=== PATIENT | female | born 1970 | race African-American/Black ===

== ENCOUNTER 2019-06-13 12:36 | Emergency (ER) | payer MEDICARE, MEDICAID ==
[~2019-06-13] VITALS: Ht 162.6 cm; Wt 63.0 kg
[2019-06-13] MEDS ORDERED: IBUPROFEN 600MG TABLET PO ONE (14:15)
[2019-06-13 14:31] VITALS: BP 133/80
== END 2019-06-13 15:33 | disposition home or self-care (01) ==
LOC: ER 12:36
DX: H66.93 Otitis media, unspecified, bilateral (principal); R50.9 Fever, unspecified; J02.9 Acute pharyngitis, unspecified; Z98.890 Other specified postprocedural states
CPT/HCPCS: 99283

== ENCOUNTER 2020-07-23 13:47 | Inpatient (IN) | payer MEDICARE, MEDICAID ==
[~2020-07-23] VITALS: Ht 162.6 cm; Wt 80.7 kg
[~2020-07-23 13:47] MED LIST: ASCO-339 MT; ASCO100T12 PO; AZAT50TA18 MT; CELL5 MT; HYDR200T80 MT; P20 MT
[2020-07-23 16:12] LABS: BASOPHILS % 0.2 % (0.0-2.0); EOSINOPHILS % 0.7 % (0.0-5.0); HEMATOCRIT. 26.1 % (36.0-48.0); HEMOGLOBIN. 8.3 g/dL (12.0-16.0); LYMPHOCYTES % 14.4 % (20.0-50.0); MEAN CORPUSCULAR VOLUME 81.9 fL (81.0-99.0); MEAN PLATELET VOLUME 13.3 fl (7.4-10.4); MONOCYTES % 4.6 % (2.0-8.0); NEUTROPHILS % 80.1 % (40.0-76.0); RED BLOOD CELL COUNT 3.19 mill/uL (4.2-5.4); RED CELL DISTRIBUTION WIDTH 17.8 % (11.6-14.6)
[2020-07-23 16:18] LABS: CHLORIDE 101 mEq/L (98-107)
[2020-07-23 16:22] LABS: PLATELET 14 x1000/uL (130-400)
[2020-07-23 21:30] VITALS: BP 124/82
[2020-07-23] MEDS ORDERED: MAGNESIUM/ALUMINUM HYDROXIDE/SIMETHICONE 30ML UDC PO PRN (23:30)
[2020-07-23] MEDS ORDERED: DOCUSATE SODIUM 100MG CAPSULE PO PRN (23:30)
[2020-07-23] MEDS ORDERED: ACETAMINOPHEN 325MG TABLET PO PRN ×2 (23:30)
[2020-07-23 23:32] VITALS: BP 128/76
[2020-07-24] VITALS (11 sets, daily range): BP systolic 98–129; BP diastolic 64–82
[2020-07-24] MEDS ORDERED: ALPRAZOLAM 0.5 MG TABLET PO PRN (00:30)
[2020-07-24] MEDS: METHYLPREDNISOLONE SOD SUCC 125 MG/2 ML VIAL IV SCH ×5 (00:44→23:07)
[2020-07-24] MEDS: HYDROMORPHONE HCL/PF 2MG/ML CPJ IV PRN ×5 (00:47→22:59)
[2020-07-24] MEDS: DIPHENHYDRAMINE 50MG/ML VIAL IV PRN ×3 (00:50→17:00)
[2020-07-24] MEDS: DEXT 5%/0.45% NACL 1000ML 1,000 ML IV SCH ×3 (01:05→20:27)
[2020-07-24 07:37] LABS: HEMATOCRIT. 24.1 % (36.0-48.0); HEMOGLOBIN. 7.9 g/dL (12.0-16.0); MEAN CORPUSCULAR HEMOGLOBIN 26.2 pg (28.0-32.0); MEAN CORPUSCULAR VOLUME 80.4 fL (81.0-99.0); MEAN PLATELET VOLUME 8.7 fl (7.4-10.4); RED BLOOD CELL COUNT 2.99 mill/uL (4.2-5.4); RED CELL DISTRIBUTION WIDTH 17.2 % (11.6-14.6)
[2020-07-24] MEDS: TRIAMCINOLONE ACETONIDE 0.1% CREAM 15GM TOP SCH ×2 (08:09→20:24)
[2020-07-24] MEDS: HYDROCORTISONE 2.5% CREAM 20GM TOP SCH ×2 (08:09→20:24)
[2020-07-24] MEDS: HYDROXYCHLOROQUINE SULFATE 200MG TABLET PO SCH ×2 (08:09→17:00)
[2020-07-24 08:17] LABS: PLATELET 39 x1000/uL (130-400)
[2020-07-24 08:23] LABS: CHLORIDE 101 mEq/L (98-107)
[2020-07-24 08:33] LABS: T4 FREE 1.08 ng/dL (0.76-1.46)
[2020-07-24 10:08] LABS: ATYPICAL LYMPHOCYTES 1
[2020-07-24 10:09] LABS: PLATELET ESTIMATE MARKEDLY DECREASED
[2020-07-24 10:40] LABS: CLARITY URINE CLEAR (CLEAR); COLOR URINE YELLOW (YELLOW); KETONES URINE NEGATIVE (NEGATIVE); LEUKOCYTE ESTERASE URINE TRACE (NEGATIVE); NITRITE URINE NEGATIVE (NEGATIVE); OCCULT BLOOD URINE NEGATIVE (NEGATIVE); PROTEIN URINE 2+ (NEGATIVE); SPECIFIC GRAVITY URINE 1.013 (1.005-1.030); UROBILINOGEN URINE 0.2 E.U./dL (0.2-1.0)
[2020-07-24 10:55] LABS: METHADONE URINE SCREEN NEGATIVE (NEGATIVE)
[2020-07-24 10:56] LABS: *AMPHETAMINES SCREEN URINE NEGATIVE (NEGATIVE); *BARBITURATES SCREEN URINE NEGATIVE (NEGATIVE); *BENZODIAZEPINES SCREEN URINE NEGATIVE (NEGATIVE); *COCAINE SCREEN URINE NEGATIVE (NEGATIVE); CANNABINOID URINE SCREEN NEGATIVE (NEGATIVE); PHENCYCLIDINE URINE SCREEN NEGATIVE (NEGATIVE)
[2020-07-24 10:59] LABS: OPIATES URINE SCREEN PRESUMTIVE POSITIVE (NEGATIVE)
[2020-07-24] MEDS: ONDANSETRON HCL 4MG/2ML INJ IV PRN ×2 (11:29→17:00)
[2020-07-24] MEDS: ZOLPIDEM TARTRATE 5MG TABLET PO PRN (20:23)
[2020-07-25] VITALS: BP 121/75
[2020-07-25] MEDS: HYDROMORPHONE HCL/PF 2MG/ML CPJ IV PRN ×6 (01:55→20:48)
[2020-07-25] MEDS: ONDANSETRON HCL 4MG/2ML INJ IV PRN ×3 (01:55→17:28)
[2020-07-25 04:00] VITALS: BP 106/71
[2020-07-25] MEDS: METHYLPREDNISOLONE SOD SUCC 125 MG/2 ML VIAL IV SCH ×4 (06:09→23:35)
[2020-07-25] MEDS: DEXT 5%/0.45% NACL 1000ML 1,000 ML IV SCH ×2 (06:12→17:28)
[2020-07-25 06:37] LABS: HEMATOCRIT. 24.4 % (36.0-48.0); MEAN CORPUSCULAR HEMOGLOBIN 26.7 pg (28.0-32.0); MEAN CORPUSCULAR VOLUME 81.9 fL (81.0-99.0); MEAN PLATELET VOLUME 9.2 fl (7.4-10.4); PLATELET 93 x1000/uL (130-400); RED BLOOD CELL COUNT 2.98 mill/uL (4.2-5.4); RED CELL DISTRIBUTION WIDTH 17.5 % (11.6-14.6)
[2020-07-25 06:46] LABS: CHLORIDE 104 mEq/L (98-107)
[2020-07-25 06:52] LABS: TOTAL IRON BINDING CAPACITY 284 ug/dL (250-450)
[2020-07-25 08:00] VITALS: BP 101/70
[2020-07-25] MEDS: HYDROXYCHLOROQUINE SULFATE 200MG TABLET PO SCH ×2 (08:24→17:28)
[2020-07-25] MEDS: HYDROCORTISONE 2.5% CREAM 20GM TOP SCH ×2 (08:25→20:49)
[2020-07-25] MEDS: TRIAMCINOLONE ACETONIDE 0.1% CREAM 15GM TOP SCH ×2 (08:25→20:49)
[2020-07-25 09:55] LABS: PLATELET ESTIMATE SLIGHTLY DECREASED
[2020-07-25 12:00] VITALS: BP 117/71
[2020-07-25 16:00] VITALS: BP 100/65
[2020-07-25] MEDS: FERROUS SULFATE 325MG TABLET PO SCH (17:28)
[2020-07-25] MEDS: ASCORBIC ACID 500 MG TABLET PO SCH (20:46)
[2020-07-25 20:58] VITALS: BP 118/73
[2020-07-25] MEDS: ZOLPIDEM TARTRATE 5MG TABLET PO PRN (21:29)
[2020-07-26 00:08] VITALS: BP 103/60
[2020-07-26] MEDS: DEXT 5%/0.45% NACL 1000ML 1,000 ML IV SCH ×2 (03:11→12:13)
[2020-07-26 04:48] VITALS: BP 121/83
[2020-07-26] MEDS: FERROUS SULFATE 325MG TABLET PO SCH ×3 (05:56→17:43)
[2020-07-26] MEDS: METHYLPREDNISOLONE SOD SUCC 125 MG/2 ML VIAL IV SCH ×3 (05:56→17:43)
[2020-07-26] MEDS: HYDROMORPHONE HCL/PF 2MG/ML CPJ IV PRN ×2 (05:57→12:08)
[2020-07-26 06:18] LABS: HEMATOCRIT. 23.7 % (36.0-48.0); HEMOGLOBIN. 7.5 g/dL (12.0-16.0); MEAN CORPUSCULAR HEMOGLOBIN 26.1 pg (28.0-32.0); MEAN CORPUSCULAR VOLUME 82.5 fL (81.0-99.0); PLATELET 121 x1000/uL (130-400); RED BLOOD CELL COUNT 2.87 mill/uL (4.2-5.4); RED CELL DISTRIBUTION WIDTH 17.5 % (11.6-14.6)
[2020-07-26 06:37] LABS: CHLORIDE 106 mEq/L (98-107)
[2020-07-26 08:00] VITALS: BP 105/74
[2020-07-26] MEDS: TRIAMCINOLONE ACETONIDE 0.1% CREAM 15GM TOP SCH (09:16)
[2020-07-26] MEDS: ASCORBIC ACID 500 MG TABLET PO SCH (09:16)
[2020-07-26] MEDS: HYDROXYCHLOROQUINE SULFATE 200MG TABLET PO SCH ×2 (09:16→17:43)
[2020-07-26] MEDS: HYDROCORTISONE 2.5% CREAM 20GM TOP SCH (09:16)
[2020-07-26 12:00] VITALS: BP 115/67
[2020-07-26 12:56] LABS: PLATELET ESTIMATE SLIGHTLY DECREASED
[2020-07-26 16:00] VITALS: BP 110/64
[2020-07-26] MEDS ORDERED: ALPRAZOLAM 0.5 MG TABLET PO NR (17:00)
[2020-07-26 17:52] VITALS: BP 163/74
[2020-07-27 09:10] LABS: ALDOLASE 3.4 U/L (3.3-10.3); ANTI-CARDIOLIPIN AB IGA < 9 APL U/mL (0-11); ANTI-CARDIOLIPIN AB IGG < 9 GPL U/mL (0-14); ANTI-CARDIOLIPIN AB IGM < 9 MPL U/mL (0-12)
[2020-07-27 13:11] LABS: ANTI-MYELOPEROXIDASE AB < 9.0 U/mL (0.0-9.0); ANTI-PROTEINASE 3 ABS < 3.5 U/mL (0.0-3.5)
[2020-07-27 17:06] LABS: ANTI-DNA DOUBLE STRANDED QUANT 23 IU/mL (0-9); SMITH ANTIBODY 0.2 AI (0.0-0.9)
[2020-07-28 04:07] LABS: HLA CLASS 1 ANTIBODY Negative (Negative); IIb/IIIa ANTIBODY Positive (Negative); Ib/IX ANTIBODY Negative (Negative)
[2020-07-28 09:07] LABS: DRVVT LA 43.8 sec (0.0-47.0); PTT-LA 29.7 sec (0.0-51.9)
[2020-07-28 10:07] LABS: LUPUS ANTICOAG INTERPRETATION Comment: (.)
[2020-07-28 13:07] LABS: ATYPICAL P-ANCA <1:20 titer (Neg:<1:20); CYTOPLASMIC C-ANCA <1:20 titer (Neg:<1:20); PERINUCLEAR P-ANCA <1:20 titer (Neg:<1:20)
[2020-07-28 15:12] LABS: ANA IFA Positive (.)
== END 2020-07-26 19:25 | disposition home or self-care (01) | DRG 813 ==
LOC: ER 13:47 → 5WST 15:56 → ENRESERV 20:14
PROVIDERS: ADMIT Internal Medicine Rheumatology; ATTEND Internal Medicine Rheumatology
PROC: 30233R1 Transfusion of Nonautologous Platelets into Peripheral Vein, Percutaneous Approach (ICD-10-PCS; principal; 2020-07-24)
DX: D69.59 Other secondary thrombocytopenia (principal); E46 Unspecified protein-calorie malnutrition; N04.9 Nephrotic syndrome with unspecified morphologic changes; D75.89 Other specified diseases of blood and blood-forming organs; D72.810 Lymphocytopenia; E86.0 Dehydration; I77.6 Arteritis, unspecified; M13.0 Polyarthritis, unspecified; M32.9 Systemic lupus erythematosus, unspecified; Z68.30 Body mass index [BMI] 30.0-30.9, adult; Z79.899 Other long term (current) drug therapy; Z87.441 Personal history of nephrotic syndrome; Z83.3 Family history of diabetes mellitus; M32.14 Glomerular disease in systemic lupus erythematosus; D50.0 Iron deficiency anemia secondary to blood loss (chronic)
CPT/HCPCS: 36415; 71045; 80048; 80053; 80305; 81003; 82085; 83520; 83540; 83550; 83880; 84134; 84439; 84484; 84550; 85025; 85044; 85379; 85613; 85651; 85732; 86022; 86147; 86160; 86225; 86235; 86256; 86850; 86880; 86900; 99285; J1170; J1200; J2405; J2930; P9034

== ENCOUNTER 2021-01-02 10:18 | Emergency (ER) | payer MEDICARE, MEDICAID ==
[~2021-01-02] VITALS: Ht 162.6 cm; Wt 74.0 kg
[2021-01-02] MEDS ORDERED: MECLIZINE 25MG TABLET PO ONE (10:45)
[2021-01-02 11:19] LABS: BASOPHILS % 0.1 % (0.0-2.0); EOSINOPHILS % 2.5 % (0.0-5.0); HEMATOCRIT. 24.5 % (36.0-48.0); HEMOGLOBIN. 7.5 g/dL (12.0-16.0); LYMPHOCYTES % 17.3 % (20.0-50.0); MEAN CORPUSCULAR HEMOGLOBIN 24.3 pg (28.0-32.0); MEAN CORPUSCULAR VOLUME 79.1 fL (81.0-99.0); MONOCYTES % 2.5 % (2.0-8.0); NEUTROPHILS % 77.6 % (40.0-76.0); PLATELET 256 x1000/uL (130-400)
[2021-01-02 11:27] LABS: CHLORIDE 107 mEq/L (98-107)
[2021-01-02] MEDS ORDERED: LEVOFLOXACIN 500MG PREMIX 100 ML IV ONE (11:30)
[2021-01-02] MEDS ORDERED: ACETAMINOPHEN 325MG TABLET PO ONE (11:30)
[2021-01-02] MEDS ORDERED: CIPR500T5 MT (15:58)
[2021-01-02 16:25] VITALS: BP 119/89
== END 2021-01-02 16:29 | disposition home or self-care (01) ==
LOC: ER 10:38
DX: H66.91 Otitis media, unspecified, right ear (principal); Z98.890 Other specified postprocedural states; Z79.899 Other long term (current) drug therapy
CPT/HCPCS: 36415; 71045; 80053; 83735; 83880; 84484; 85025; 93005; 96365; 99285; J1956; J8597

== ENCOUNTER 2021-01-08 06:26 | Emergency (ER) | payer MEDICARE, MEDICAID ==
[~2021-01-08] VITALS: Ht 162.6 cm; Wt 73.0 kg
[~2021-01-08 06:26] MED LIST changes: +CIPR500T5 MT
[2021-01-08] MEDS ORDERED: IBUP-2029 MT (07:05)
[2021-01-08] MEDS ORDERED: KETOROLAC 60MG/2ML VIAL IM ONE (07:15)
[2021-01-08 07:37] VITALS: BP 141/91
== END 2021-01-08 07:39 | disposition home or self-care (01) ==
LOC: ER 06:26
DX: H92.01 Otalgia, right ear (principal); M32.9 Systemic lupus erythematosus, unspecified; Z98.890 Other specified postprocedural states
CPT/HCPCS: 96372; 99283; J1885